=== PATIENT | male | born 1990 | race African-American/Black ===

== ENCOUNTER 2018-09-09 18:34 | Emergency (ER) | payer BC ==
[~2018-09-09] VITALS: Ht 182.9 cm; Wt 90.7 kg
[2018-09-09 20:34] VITALS: BP 159/92
[2018-09-09] MEDS ORDERED: oxyCODONE/APAP (5/325 MG) 1 UDTAB TABLET PO ONE (21:00)
[2018-09-09] MEDS ORDERED: oxyCODONE/APAP (5/325 MG) 1 UDTAB TABLET ONE (22:17)
== END 2018-09-09 23:36 | disposition home or self-care (01) ==
LOC: ER 18:41
DX: S93.491A Sprain of other ligament of right ankle, initial encounter (principal); S63.591A Other specified sprain of right wrist, initial encounter; S20.211A Contusion of right front wall of thorax, initial encounter; V49.49XA Driver injured in collision with other motor vehicles in traffic accident, initial encounter; Y93.89 Activity, other specified; Y92.413 State road as the place of occurrence of the external cause; Y99.8 Other external cause status
CPT/HCPCS: 29125; 71100; 73110; 73610; 99283; A4606